=== PATIENT | male | born 2000 | race African-American/Black ===

== ENCOUNTER 2019-11-22 03:09 | Emergency (ER) | payer SELFPAY ==
[~2019-11-22] VITALS: Ht 188 cm; Wt 76.4 kg
[2019-11-22] MEDS ORDERED: PERTUSS(ACELL),DIPH,TET VAC/PF 0.5 ML VIAL IM ONE (03:30)
[2019-11-22 03:44] VITALS: BP 137/71
== END 2019-11-22 03:48 | disposition home or self-care (01) ==
LOC: EMS 03:11
DX: S61.512A Laceration without foreign body of left wrist, initial encounter (principal); Y04.0XXA Assault by unarmed brawl or fight, initial encounter; Y93.89 Activity, other specified; Y92.89 Other specified places as the place of occurrence of the external cause; Y99.8 Other external cause status
CPT/HCPCS: 12001; 90471; 90715

== ENCOUNTER 2020-03-25 14:23 | Emergency (ER) | payer MEDICAID, OTHER ==
[~2020-03-25] VITALS: Ht 190.5 cm; Wt 77.3 kg
[2020-03-25 14:27] VITALS: BP 124/62
[2020-03-25] MEDS ORDERED: HYDROCODONE/ACETAMINOPHEN 5-325 MG TABLET PO ONE (15:15)
[2020-03-25] MEDS ORDERED: IBUPROFEN 800 MG TABLET PO ONE (15:15)
[2020-03-25] MEDS ORDERED: SODIUM CHLORIDE 0.9% 250 ML IRRIG SOLUTION BOTTLE IRRIG ONE (16:15)
[2020-03-25] MEDS ORDERED: POVIDONE-IODINE 10% 15 ML SOLUTION UD TP ONE (17:30)
[2020-03-25] MEDS ORDERED: LIDOCAINE 1% 10 ML VIAL INJ ONE (17:30)
== END 2020-03-25 20:10 | disposition left against medical advice (07) ==
LOC: EMS 14:25
DX: S62.316A Displaced fracture of base of fifth metacarpal bone, right hand, initial encounter for closed fracture (principal); S63.064A Dislocation of metacarpal (bone), proximal end of right hand, initial encounter; S62.314A Displaced fracture of base of fourth metacarpal bone, right hand, initial encounter for closed fracture; S60.512A Abrasion of left hand, initial encounter; R03.0 Elevated blood-pressure reading, without diagnosis of hypertension; F17.210 Nicotine dependence, cigarettes, uncomplicated; F12.90 Cannabis use, unspecified, uncomplicated; W22.01XA Walked into wall, initial encounter; Y93.89 Activity, other specified; Y92.89 Other specified places as the place of occurrence of the external cause; Y99.8 Other external cause status
CPT/HCPCS: 29125; 73110; 73130; 73200; 99284; J3490